=== PATIENT | male | born 1960 | race Caucasian/White ===

== ENCOUNTER 2019-09-15 12:04 | Day surgery (SDC) | payer MEDICAID ==
[~2019-09-15] VITALS: Ht 182.9 cm; Wt 87.1 kg
[~2019-09-15 12:04] MED LIST: LACTATED RINGERS 500 ML IV SCH
[2019-09-15] MEDS ORDERED: BUPIVACAINE HCL 0.5% (5MG/ML) 50ML ONE (12:29)
[2019-09-15] MEDS ORDERED: SKIN ADHESIVE 0.7 GM EA TOP ONE (12:29)
[2019-09-15] MEDS ORDERED: NORMAL SALINE 0.9% 10 ML SYR ONE (12:29)
[2019-09-15] MEDS ORDERED: LIDOCAINE HCL 1% 20ML VIAL (Pyxis) INJ ONE (12:29)
[2019-09-15] MEDS ORDERED: BACITRACIN 50,000 UNITS/VIAL ONE (12:30)
[2019-09-15 12:57] LABS: HEMOGLOBIN 14.9 g/dL (14.0-18.0); MEAN CORPUSCULAR HEMOGLOBIN 29.5 pg (28.0-32.0); PLATELET 189 x1000/uL (130-400); RED BLOOD CELL COUNT 5.06 mill/uL (4.7-6.1); RED CELL DISTRIBUTION WIDTH 14.1 % (11.6-14.6)
[2019-09-15 12:58] LABS: CLARITY URINE CLEAR (CLEAR); COLOR URINE YELLOW (YELLOW); KETONES URINE NEGATIVE (NEGATIVE); LEUKOCYTE ESTERASE URINE NEGATIVE (NEGATIVE); NITRITE URINE NEGATIVE (NEGATIVE); OCCULT BLOOD URINE NEGATIVE (NEGATIVE); PH URINE 8.5 (4.5-8.0); PROTEIN URINE NEGATIVE (NEGATIVE); UROBILINOGEN URINE 0.2 E.U./dL (0.2-1.0)
[2019-09-15 13:04] LABS: CHLORIDE 107 mEq/L (98-107)
[2019-09-15 13:06] LABS: INR 1.2; PARTIAL THROMBOPLASTIN TIME 32.8 sec (23.4-31.0); PROTHROMBIN TIME 12.1 sec (9.6-11.0)
[2019-09-15] MEDS ORDERED: CIME400T PO (13:07)
[2019-09-15] MEDS ORDERED: OMEP40CA12 PO (13:07)
[2019-09-15] MEDS ORDERED: FENTANYL CITRATE/PF 50MCG/ML 2ML VIAL ONE (13:18)
[2019-09-15] MEDS ORDERED: NEOSTIGMINE METHYLSULFATE 1MG/ML 10 ML VIAL ONE (13:18)
[2019-09-15] MEDS ORDERED: MIDAZOLAM HCL 2 MG/2 ML VIAL ONE (13:18)
[2019-09-15] MEDS ORDERED: PROPOFOL 200MG/20ML VIAL IV ONE (13:18)
[2019-09-15] MEDS ORDERED: ROCURONIUM BROMIDE 10MG/ML VIAL 5ML IV ONE (13:18)
[2019-09-15] MEDS ORDERED: SODIUM CHLORIDE 0.9% 10ML VIAL ONE (13:19)
[2019-09-15] MEDS ORDERED: METOCLOPRAMIDE HCL 10MG/2ML VIAL ONE (13:19)
[2019-09-15] MEDS ORDERED: GLYCOPYRROLATE 0.2 MG/ML 2ML VIAL ONE (13:19)
[2019-09-15] MEDS ORDERED: LIDOCAINE HCL/PF 1% 10 MG/ML 5ML VIAL ONE (13:19)
[2019-09-15] MEDS ORDERED: ONDANSETRON HCL 4MG/2ML INJ ONE (13:19)
[2019-09-15] MEDS ORDERED: SUCCINYLCHOLINE CHLORIDE 200MG/10ML IV ONE (13:19)
[2019-09-15] MEDS ORDERED: CEFAZOLIN SODIUM 1000MG/VIAL ONE (13:19)
[2019-09-15] MEDS ORDERED: KETOROLAC 30MG/ML VIAL ONE (14:43)
[2019-09-15] MEDS ORDERED: SODIUM CHLORIDE 0.9% 1,000 ML IV ONE (14:59)
[2019-09-15] MEDS ORDERED: MEPERIDINE HCL/PF 25MG/ML CPJ IV PRN ×2 (15:00)
[2019-09-15] MEDS ORDERED: MORPHINE SULFATE 2 MG/ML CPJ (NOT FOR IM USE) IV PRN (15:00)
[2019-09-15] MEDS ORDERED: HYDROMORPHONE HCL/PF 2MG/ML CPJ IV PRN (15:00)
[2019-09-15] MEDS ORDERED: ONDANSETRON HCL 4MG/2ML INJ IV PRN (15:00)
== END 2019-09-15 17:31 | disposition home or self-care (01) ==
LOC: OR 12:04
PROVIDERS: ATTEND Specialist
DX: K40.90 Unilateral inguinal hernia, without obstruction or gangrene, not specified as recurrent (principal); K21.9 Gastro-esophageal reflux disease without esophagitis; Z90.49 Acquired absence of other specified parts of digestive tract; Z98.890 Other specified postprocedural states; Z79.899 Other long term (current) drug therapy; Z88.8 Allergy status to other drugs, medicaments and biological substances
CPT/HCPCS: 36415; 49505; 80048; 81003; 85027; 85610; 85730; 93005; C1781; J0330; J0690; J1885; J2250; J2405; J2704; J2765; J3010; J3490; J2710